=== PATIENT | female | born 1970 | race Caucasian/White ===

== ENCOUNTER 2023-10-21 20:57 | Inpatient (IN) | payer OTHER, MEDICAID, MEDICARE ==
[~2023-10-21] VITALS: Ht 162.6 cm; Wt 83.5 kg
[2023-10-21] MEDS: SODIUM CHLORIDE 0.9% 1,000 ML IV ONE (21:30)
[2023-10-21 21:50] LABS: BASOPHILS % 0.2 % (0.0-2.0); DIFFERENTIAL COMMENT 0; EOSINOPHILS % 0.8 % (0.0-5.0); HEMATOCRIT. 32.2 % (36.0-48.0); HEMOGLOBIN. 11.1 g/dL (12.0-16.0); LYMPHOCYTES % 15.4 % (20.0-50.0); MEAN CORPUSCULAR HGB CONC 34.5 g/dL (31.0-37.0); MEAN CORPUSCULAR VOLUME 109.9 fL (81.0-99.0); MEAN PLATELET VOLUME 8.5 fl (7.4-10.4); MONOCYTES % 12.3 % (2.0-8.0); NEUTROPHILS % 71.3 % (40.0-76.0); PLATELET 82 x1000/uL (130-400); RED BLOOD CELL COUNT 2.93 mill/uL (4.2-5.4); RED CELL DISTRIBUTION WIDTH 16.4 % (11.6-14.6); WHITE BLOOD COUNT 13.2 x1000/uL (4.5-11.0)
[2023-10-21 21:56] LABS: CHLORIDE 93 mEq/L (98-107); SODIUM 122 mEq/L (136-145)
[2023-10-21 21:57] LABS: CALCIUM 8.3 mg/dL (8.7-10.4); CARBON DIOXIDE 21 mEq/L (21-32)
[2023-10-21 22:01] LABS: INR 1.5; PROTHROMBIN TIME 16.6 sec (9.6-11.0)
[2023-10-21 22:02] LABS: CREATININE 0.8 mg/dL (0.6-1.0); GLUCOSE 112 mg/dL (70-105)
[2023-10-21 22:04] LABS: ALANINE AMINOTRANSFERASE 55 IU/L (10-49); ALBUMIN 2.9 g/dL (3.2-4.8); ASPARTATE AMINOTRANSFERASE 125 IU/L (<34); BILIRUBIN DIRECT 3.5 mg/dL (<=3.0); BILIRUBIN TOTAL 6.3 mg/dL (0.1-1.0); LACTIC ACID 2.2 mmol/L (0.4-2.0); PROTEIN TOTAL 6.5 g/dL (6.0-8.3); TROPONIN I HIGH SENSITIVITY 5 ng/L (3.0-34)
[2023-10-21 22:14] LABS: ETHANOL BLOOD < 10 mg/dL (<10); POTASSIUM 2.3 mEq/L (3.5-5.1); UREA NITROGEN BLOOD < 5 mg/dL (9-23)
[2023-10-21] MEDS ORDERED: PIPERACILLIN/TAZO 3.375G/50ML 50 ML IV ONE (22:15)
[2023-10-21] MEDS: KCL 10MEQ/50ML PREMIX 50 ML IV NR (22:15)
[2023-10-21] MEDS ORDERED: VANCOMYCIN 1G PREMIX 200 ML IV ONE (22:15)
[2023-10-21] MEDS: POTASSIUM CHLORIDE 20MEQ TABLET SR PO NR ×2 (22:15→23:30)
[2023-10-21] MEDS: SODIUM CHLORIDE 0.9% 1000ML BAG (SEPSIS BOLUS) IV ONE (22:15)
[2023-10-21] MEDS ORDERED: ZOLPIDEM TARTRATE 5MG TABLET PO PRN (23:30)
[2023-10-21] MEDS: MVI, ADULT NO.1 10 ML, FOLIC ACID 1 MG, THIAMINE HCL 100 MG in SODIUM CHLORIDE 0.9% 1,0... IV SCH (23:30)
[2023-10-21] MEDS ORDERED: NITROGLYCERIN 0.4MG TABLET SL SL PRN (23:30)
[2023-10-21] MEDS ORDERED: MAGNESIUM/ALUMINUM HYDROXIDE/SIMETHICONE 30ML UDC PO PRN (23:30)
[2023-10-21] MEDS ORDERED: ONDANSETRON HCL 4MG/2ML INJ IV PRN (23:30)
[2023-10-21] MEDS ORDERED: GUAIFENESIN 200MG/10ML SUGAR FREE UDC PO PRN (23:30)
[2023-10-21] MEDS ORDERED: ACETAMINOPHEN 325MG TABLET PO PRN ×2 (23:30)
[2023-10-21] MEDS ORDERED: CLONIDINE 0.1MG TABLET PO PRN (23:30)
[2023-10-21] MEDS ORDERED: KETOROLAC 15MG/ML VIAL IV PRN (23:30)
[2023-10-21] MEDS ORDERED: DOCUSATE SODIUM 100MG CAPSULE PO PRN (23:30)
[2023-10-22] MEDS: VANCOMYCIN 1.5GM/250ML IV NR (00:43)
[2023-10-22 04:32] VITALS: BP 82/47; PULSE 87; RESP 20; TEMP 36.4736
[2023-10-22] MEDS: PIPERACILLIN/TAZO 3.375G/50ML 50 ML IV SCH (06:00)
[2023-10-22 08:00] VITALS: BP 93/55; PULSE 85; RESP 16; TEMP 35.78064; O2SAT 100
[2023-10-22] MEDS ORDERED: IBUP-2437 MT (09:16)
[2023-10-22] MEDS: ZINC SULFATE 220 MG ( 50 ) CAPSULE PO SCH (09:17)
[2023-10-22] MEDS: ASCORBIC ACID 500 MG TABLET PO SCH (09:17)
[2023-10-22] MEDS: PANTOPRAZOLE SODIUM 40 MG/VIAL IV SCH (09:17)
[2023-10-22 12:00] VITALS: BP 111/55; PULSE 93; RESP 18; TEMP 35.61396
[2023-10-22] MEDS: VANCOMYCIN 1GM/200ML PMX (BAXTER) IV SCH (12:37)
[2023-10-22] MEDS ORDERED: KETOROLAC 15MG/ML VIAL IV PRN (14:00)
[2023-10-22] MEDS: KCL 10MEQ/50ML PREMIX 50 ML IV NR (15:58)
[2023-10-22 16:00] VITALS: BP 105/62; PULSE 89; RESP 20; TEMP 35.50284; O2SAT 100
[2023-10-22 19:18] LABS: CHLORIDE 102 mEq/L (98-107); SODIUM 129 mEq/L (136-145)
[2023-10-22 19:19] LABS: CALCIUM 8.5 mg/dL (8.7-10.4); CARBON DIOXIDE 18 mEq/L (21-32)
[2023-10-22 19:24] LABS: CREATININE 0.9 mg/dL (0.6-1.0); GLUCOSE 111 mg/dL (70-105)
[2023-10-22] MEDS: MVI, ADULT NO.1 10 ML, FOLIC ACID 1 MG, THIAMINE HCL 100 MG in SODIUM CHLORIDE 0.9% 1,0... IV ONE (19:25)
[2023-10-22 19:27] LABS: PHOSPHORUS 1.6 mg/dL (2.5-4.9)
[2023-10-22 19:32] LABS: POTASSIUM 2.8 mEq/L (3.5-5.1); UREA NITROGEN BLOOD < 5 mg/dL (9-23)
[2023-10-22] MEDS ORDERED: POTASSIUM CHLORIDE 40 MEQ in DEXT 5% WATER 230 ML IV ONE (19:45)
[2023-10-22 20:00] VITALS: BP 110/66; PULSE 98; RESP 18; TEMP 36.3918; O2SAT 97
[2023-10-22] MEDS: POTASSIUM CHLORIDE 20MEQ TABLET SR PO NR (20:12)
[2023-10-22] MEDS: KCL 20MEQ/100ML X 2 FOR TOTAL KCL 40MEQ/200ML IV SCH (20:12)
[2023-10-22] MEDS: POTASSIUM PHOSPHATE 30 MMOL in SODIUM CHLORIDE 0.9% 490 ML IV NR (23:47)
[2023-10-23] VITALS: BP 110/56; PULSE 85; RESP 19; TEMP 36.3918; O2SAT 95
[2023-10-23 04:00] VITALS: BP 94/57; PULSE 91; RESP 18; TEMP 36.28068; O2SAT 98
[2023-10-23 06:55] LABS: CHLORIDE 106 mEq/L (98-107); POTASSIUM 3.1 mEq/L (3.5-5.1); SODIUM 133 mEq/L (136-145)
[2023-10-23 06:57] LABS: CARBON DIOXIDE 16 mEq/L (21-32)
[2023-10-23 06:58] LABS: CALCIUM 8.2 mg/dL (8.7-10.4)
[2023-10-23 07:01] LABS: AMMONIA 79 uMol/L (<32)
[2023-10-23 07:02] LABS: GLUCOSE 104 mg/dL (70-105)
[2023-10-23 07:04] LABS: ALANINE AMINOTRANSFERASE 61 IU/L (10-49); ALBUMIN 2.7 g/dL (3.2-4.8)
[2023-10-23 07:05] LABS: ASPARTATE AMINOTRANSFERASE 128 IU/L (<34); BILIRUBIN TOTAL 6.7 mg/dL (0.1-1.0); PHOSPHORUS 2.1 mg/dL (2.5-4.9); PROTEIN TOTAL 5.9 g/dL (6.0-8.3)
[2023-10-23 07:34] LABS: UREA NITROGEN BLOOD < 5 mg/dL (9-23)
[2023-10-23 08:00] VITALS: BP 97/61; PULSE 95; RESP 18; TEMP 36.6696; O2SAT 99
[2023-10-23 10:41] LABS: BASOPHILS % 0.1 % (0.0-2.0); EOSINOPHILS % 0.8 % (0.0-5.0); HEMATOCRIT. 32.7 % (36.0-48.0); LYMPHOCYTES % 12.6 % (20.0-50.0); MEAN CORPUSCULAR HEMOGLOBIN 37.3 pg (28.0-32.0); MEAN CORPUSCULAR HGB CONC 33.7 g/dL (31.0-37.0); MEAN CORPUSCULAR VOLUME 110.8 fL (81.0-99.0); MEAN PLATELET VOLUME 8.5 fl (7.4-10.4); MONOCYTES % 12.1 % (2.0-8.0); NEUTROPHILS % 74.4 % (40.0-76.0); PLATELET 79 x1000/uL (130-400); RED BLOOD CELL COUNT 2.95 mill/uL (4.2-5.4); RED CELL DISTRIBUTION WIDTH 16.6 % (11.6-14.6); WHITE BLOOD COUNT 11.9 x1000/uL (4.5-11.0)
[2023-10-23 10:46] LABS: ADD RBC MORPHOLOGY YES; DIFFERENTIAL COMMENT 1
[2023-10-23 12:00] VITALS: BP 95/44; PULSE 98; RESP 18; TEMP 36.44736; O2SAT 99
[2023-10-23] MEDS: POTASSIUM CHLORIDE 20MEQ TABLET SR PO NR (12:55)
[2023-10-23] MEDS: RIFAXIMIN 550 MG TABLET PO SCH (12:55)
[2023-10-23] MEDS: POTASSIUM PHOSPHATE 30 MMOL in DEXT 5% WATER 490 ML IV NR (14:23)
[2023-10-23 15:44] LABS: ANISOCYTOSIS 1+; PLATELET ESTIMATE DECREASED
[2023-10-23 16:00] VITALS: BP 92/49; PULSE 89; RESP 18; TEMP 36.44736; O2SAT 100
[2023-10-23] MEDS: MAGNESIUM 2 G PREMIX 50 ML IV NR (17:03)
[2023-10-23] MEDS: LACTULOSE 20G/30ML UDC PO SCH (17:03)
[2023-10-23 20:00] VITALS: BP 91/47; PULSE 90; RESP 18; TEMP 36.3918; O2SAT 100
[2023-10-23] MEDS: PIPERACILLIN/TAZO 3.375G/50ML 50 ML IV SCH (20:58)
[2023-10-24] VITALS: BP 101/58; PULSE 91; RESP 18; TEMP 36.114; O2SAT 97
[2023-10-24 04:00] VITALS: BP 90/39; PULSE 86; RESP 19; TEMP 36.6696; O2SAT 98
[2023-10-24 07:10] LABS: CHLORIDE 106 mEq/L (98-107); SODIUM 133 mEq/L (136-145)
[2023-10-24 07:12] LABS: CARBON DIOXIDE 17 mEq/L (21-32)
[2023-10-24 07:13] LABS: CALCIUM 7.8 mg/dL (8.7-10.4)
[2023-10-24 07:17] LABS: GLUCOSE 93 mg/dL (70-105)
[2023-10-24 07:19] LABS: ALANINE AMINOTRANSFERASE 60 IU/L (10-49); ALBUMIN 2.5 g/dL (3.2-4.8); ASPARTATE AMINOTRANSFERASE 102 IU/L (<34)
[2023-10-24 07:20] LABS: BILIRUBIN TOTAL 6.1 mg/dL (0.1-1.0); PHOSPHORUS 3.5 mg/dL (2.5-4.9); PROTEIN TOTAL 5.6 g/dL (6.0-8.3)
[2023-10-24 07:21] LABS: BASOPHILS % 0.4 % (0.0-2.0); DIFFERENTIAL COMMENT 0; EOSINOPHILS % 0.9 % (0.0-5.0); HEMATOCRIT. 28.4 % (36.0-48.0); HEMOGLOBIN. 9.8 g/dL (12.0-16.0); LYMPHOCYTES % 20.1 % (20.0-50.0); MEAN CORPUSCULAR HEMOGLOBIN 37.8 pg (28.0-32.0); MEAN CORPUSCULAR HGB CONC 34.5 g/dL (31.0-37.0); MEAN CORPUSCULAR VOLUME 109.5 fL (81.0-99.0); MEAN PLATELET VOLUME 8.7 fl (7.4-10.4); MONOCYTES % 12.8 % (2.0-8.0); NEUTROPHILS % 65.8 % (40.0-76.0); PLATELET 78 x1000/uL (130-400); RED CELL DISTRIBUTION WIDTH 16.9 % (11.6-14.6); WHITE BLOOD COUNT 11.5 x1000/uL (4.5-11.0)
[2023-10-24 07:50] LABS: CREATININE 1.5 mg/dL (0.6-1.0); POTASSIUM 2.8 mEq/L (3.5-5.1); UREA NITROGEN BLOOD < 5 mg/dL (9-23)
[2023-10-24 08:00] VITALS: BP 91/51; PULSE 81; RESP 18; TEMP 36.114; O2SAT 98
[2023-10-24] MEDS: POTASSIUM CHLORIDE 20MEQ TABLET SR PO SCH (10:38)
[2023-10-24] MEDS: KCL 20MEQ/100ML PREMIX 100 ML IV SCH (10:40)
[2023-10-24 12:00] VITALS: BP 101/55; PULSE 85; RESP 18; TEMP 36.33624; O2SAT 98
[2023-10-24 16:00] VITALS: BP 100/44; PULSE 86; RESP 18; TEMP 36.72516; O2SAT 98
[2023-10-24 17:56] VITALS: BP 101/55; PULSE 85; O2SAT 98
== END 2023-10-24 18:10 | disposition short-term general hospital (02) | DRG 871 ==
LOC: ER 20:57 → EDBEDREQ 21:33 → 7EST 22:55 → EDBEDREQSVC 22:57 → EDBEDREQ 22:57 → EDBEDREQSVC 10-22 00:39 → ER 10-22 02:30
PROVIDERS: ADMIT Internal Medicine; ATTEND Internal Medicine
DX: A41.9 Sepsis, unspecified organism (principal); G92.8 Other toxic encephalopathy; E87.1 Hypo-osmolality and hyponatremia; E44.0 Moderate protein-calorie malnutrition; R65.20 Severe sepsis without septic shock; E87.6 Hypokalemia; K74.60 Unspecified cirrhosis of liver; F10.20 Alcohol dependence, uncomplicated; D63.8 Anemia in other chronic diseases classified elsewhere; R74.01 Elevation of levels of liver transaminase levels; E83.51 Hypocalcemia; I10 Essential (primary) hypertension; I25.10 Atherosclerotic heart disease of native coronary artery without angina pectoris; K76.82 Hepatic encephalopathy; Z82.49 Family history of ischemic heart disease and other diseases of the circulatory system; Z68.31 Body mass index [BMI] 31.0-31.9, adult
CPT/HCPCS: 36415; 71045; 80048; 80053; 80076; 80202; 80320; 82140; 83605; 83735; 84100; 84145; 84484; 85025; 93005; 93306; 99285; C1893; J2470; J2543; J3370; J3411; J3475; J3480; J3490; J7030; J7040; J7060; G0480